=== PATIENT | female | born 1980 | race Caucasian/White ===

== ENCOUNTER 2016-06-03 08:54 | Emergency (ER) | payer BC ==
[2016-06-03 09:23] VITALS: BP 129/87
--- NOTE | 2016-06-03 11:04 | Emergency Department Report ---
HPI - General Chief Complaint: Sore Throat Time Seen by Provider: 06/03/16 10:34 - HPI HPI: Patient here reported that she is having upper respiratory symptoms. Reports cough, chills, wheezing. Denies any nausea vomiting. Denies any fever. She said that when she coughs her chest hurts. Denies any neck pain or stiffness. Report nasal congestion and pressure. This has been ongoing for a week. She says she took sinus medication but still no relief. She reports body ache at 7 out of 10. ED Past Medical Hx - Past Medical History Previous Medical History?: No Hx Arthritis: Yes - Surgical History Past Surgical History?: No Additional Surgical History: Knee - Family History Family history: hypertension - Social History Smoking Status: Never Smoker Substance Use Type: None - Medications Home Medications: Home Medications Medication Instructions Recorded Confirmed Last Taken Type Azithromycin [Zithromax Z-MIL] 250 mg PO DAILY #6 tab 06/03/16 Unknown Rx Fluticasone [Flonase] 1 spray NS QDAY #1 bottle 06/03/16 Unknown Rx Loratadine [Claritin] 10 mg PO DAILY #10 tablet 06/03/16 Unknown Rx ED Review of Systems ROS: Stated complaint: THROAT/EAR PAIN Other details as noted in HPI Comment: All other systems reviewed and negative Constitutional: denies: chills, fever ENT: congestion. denies: ear pain, throat pain Respiratory: cough, wheezing. denies: orthopnea, shortness of breath, SOB with exertion, SOB at rest, stridor Cardiovascular: denies: chest pain, palpitations, edema, syncope Gastrointestinal: denies: abdominal pain, nausea, vomiting Musculoskeletal: arthralgia. denies: back pain Skin: denies: rash Physical Exam - Physical Exam Vital Signs: Vital Signs 06/03/16 09:20 Temperature 98.4 F Pulse Rate 84 Respiratory 20 Rate Blood Pressure 129/87 O2 Sat by Pulse 100 Oximetry General: This is a 35-year-old female well-nourished well-developed in no acute distress. Physical Exam: Head: [Normocephalic atraumatic Mouth: Moist, no pharyngeal exudate or erythema. Uvula is midline and oral airway is patent. No gingival enlargement or dental tenderness. No facial swelling. No peritonsillar abscesses. Neck: Supple, no C-spine tenderness, no tracheal deviation. Nontender to palpate. no adenopathy Ears: Bilateral TMs congested without erythema .bilateral EAC without any redness swelling or drainage Eyes: Bilateral pupils equal and reactive to light, bilateral EOM intact. Bilateral sclera and conjunctiva without injection. Normal accommodation Nose: Mucosa moist, positive congestion with erythema. Positive facial fullness with holding head down. Positive clear drainage. maxillary and frontal sinus non-tender to palpate. Lungs: Clear to auscultate bilaterally no rhonchi wheezes or rales. Normal work of breathing . Dry cough extremity; No CCE. +2 pulses. No neurovascular compromise Cardiovascular: S1-S2, regular rate rhythm. No murmurs. Skin: clean Dry and intact no rash no lesions Psych: Normal mood and behavior ED Course Vital Signs 06/03/16 09:20 Temperature 98.4 F Pulse Rate 84 Respiratory 20 Rate Blood Pressure 129/87 O2 Sat by Pulse 100 Oximetry - Reevaluation(s) Reevaluation #1: 06/03/16 11:08 Patient stable throughout ED course ED Medical Decision Making - Medical Decision Making ED course: I Discussed the patient if she has sinus infection and will be treated with medication. Patient was understanding of discharge diagnosis and treatment plan. Patient discharged to follow up with her primary care physician in 3 days which she does have a primary care physician. Discharged with prescription for Flonase, Zithromax and Claritin Critical care attestation.: If time is entered above; I have spent that time in minutes in the direct care of this critically ill patient, excluding procedure time. ED Disposition Clinical Impression: Cough Sinusitis, acute Qualifiers: Sinusitis location: unspecified location Recurrence: not specified as recurrent Qualified Code(s): J01.90 - Acute sinusitis, unspecified Disposition: DISCHARGED TO HOME OR SELFCARE Is pt being admited?: No Does the pt Need Aspirin: No Condition: Stable Instructions: Acute Cough (ED), Sinusitis (ED) Additional Instructions: Please flush nostrils out with saline nasal wash Prescriptions: Azithromycin [Zithromax Z-MIL] 250 mg PO DAILY #6 tab Fluticasone [Flonase] 1 spray NS QDAY #1 bottle Loratadine [Claritin] 10 mg PO DAILY #10 tablet Referrals: PEDRO PABLO WISE MD [Primary Care Provider] - 3-5 Days Forms: Work/School Release Form(ED)
== END 2016-06-03 11:41 | disposition home or self-care (01) ==
LOC: ED 08:54
DX: J01.90 Acute sinusitis, unspecified (principal); M19.90 Unspecified osteoarthritis, unspecified site; R05 Cough
CPT/HCPCS: 99282